=== PATIENT | male | born 1990 | race Caucasian/White ===

== ENCOUNTER 2017-08-26 11:02 | Emergency (ER) | payer MEDICAID, OTHER ==
[2017-08-26] MEDS ORDERED: NS 1,000 ML IV ONE ×2 (11:49→13:20)
[2017-08-26] MEDS ORDERED: LORazepam 2 MG/ML INJ IVP ONE (12:37)
--- NOTE | 2017-08-26 12:37 | EDPHY ---
General - History Smoking Status: Current every day smoker Time Seen by Provider: 08/26/17 12:04 Narrative: CHIEF COMPLAINT: Possible anxiety versus allergic reaction HISTORY OF PRESENT ILLNESS: Patient arrives by EMS with complaints possible allergic reaction. He says he was eating yogurt earlier today at work when he felt a sudden onset tingling, numbness, chest pain, and feeling anxious. This started abruptly and was constant. Symptoms worsen shortly after, thus he contacted 911. He felt as though he may have been have an allergic reaction as he had some symptoms in the past. He is also concerned that it may just be an anxiety reaction. He has had no difficulty breathing. No pruritus or rash. No difficulty swallowing. No other associated complaints or modifying factors. REVIEW OF SYSTEMS: Ten systems reviewed and are negative unless otherwise noted in the HPI PCP: Dr. Amber Andrea SPECIALISTS: None PAST MEDICAL HISTORY: None PAST SURGICAL HISTORY: No surgical history SOCIAL HISTORY: Admits to nicotine use. No drug or alcohol use FAMILY HISTORY: Noncontributory EXAMINATION General Appearance: Alert, no distress Head: normocephalic, atraumatic Eyes: Pupils equal and round, no conjunctival pallor or injection ENT, Mouth: Mucous membranes moist. Airway is widely patent. There is no erythema or edema of the oropharynx. Neck: Normal inspection, supple, non-tender Respiratory: Lungs are clear to auscultation. No wheezing rhonchi or crackles Cardiovascular: Rate. Regular rhythm. No murmur. Gastrointestinal: Abdomen is soft and nontender Back: non-tender, no bony abnormalities Neurological: A&O, nonfocal, normal gait. No pronator drift. Skin: Warm and dry, no rash. No petechiae or purpura Extremities: Nontender, no pedal edema Psychiatric: Mood and affect normal DIFFERENTIAL DIAGNOSES: Including but not limited to anxiety reaction, anaphylaxis, allergic reaction, substance abuse MDM: 12:30 p.m. Suspected anxiety reaction patient appears very anxious and tremulous. He has no rash at any point of his person. He has no involvement of the airway. No evidence of anaphylaxis. I will treat with Ativan and monitor. 1:30 p.m. Patient re-evaluated. He has received Ativan and is currently receiving IV fluid. Patient's heart rate has minimally responded. He does not feel much better so we will continue to monitor. 2:30 p.m. Patient is still receiving his IV fluid and then I will recheck. 2:50 p.m. Patient re-evaluated. He is feeling significantly better. Heart rate has improved to 108 to 110 beats per minute. He is asking to be discharged home as he says he feels significantly better. He has no complaints of swelling or difficulty breathing or swallowing. Has no rash. I suspect this is likely anxiety reaction. All write a prescription for hydroxyzine for him. He has strict ER precautions for any swelling of the lips, face or tongue, difficulty breathing or swallowing, rash. He is comfortable this plan and discharged in stable condition SUPERVISION: This patient was independently evaluated without direct involvement of or examination by the attending physician. (Grey Sykes) Medical Decision Making: I did not see this patient while he was in the emergency department. However his care was discussed with the PA while the patient was in the department. I agree with treatment plan and management (Sean Powell) - Objective Vital Signs: Initial Vital Signs Temperature (C) 98.6 F 08/26/17 11:04 Heart Rate 134 H 08/26/17 11:04 Respiratory Rate 18 08/26/17 11:04 Blood Pressure 148/100 H 08/26/17 11:04 O2 Sat (%) 97 08/26/17 11:04 O2 Delivery Mode Room Air Allergies/Adverse Reactions: No Known Allergies Allergy (Unverified 08/26/17 11:09) Home Medications: Medication Instructions Recorded Citalopram 07/19/15 Propranolol HCl 07/19/15 VYVANSE 07/19/15 Adderall 10 MG (RX) 07/25/15 Xanax 07/30/15 LAMOTRIGINE 01/30/16 OXcarbazepine 01/30/16 hydrOXYzine HCL [Hydroxyzine HCl] 50 mg PO Q6-8PRN PRN #10 tablet 08/26/17 Medications Given: Discontinued Medications Sodium Chloride (Ns) 1,000 mls @ 0 mls/hr IV ONCE ONE PRN Reason: Wide Open Stop: 08/26/17 11:50 Last Admin: 08/26/17 11:50 Dose: 1,000 mls Sodium Chloride (Ns) 1,000 mls @ 0 mls/hr IV ONCE ONE PRN Reason: Wide Open Stop: 08/26/17 13:21 Last Admin: 08/26/17 13:21 Dose: 1,000 mls Lorazepam (Ativan Injection) 2 mg IVP EDNOW ONE Stop: 08/26/17 12:38 Last Admin: 08/26/17 12:43 Dose: 2 mg Departure - Departure Disposition: Home, Routine, Self-Care Clinical Impression: Anxiety reaction Condition: Good Instructions: Anxiety (ED), Anxiolysis in Adults (ED) Additional Instructions: 1. Medication as prescribed as needed 2. Contact primary care physician today 3. ED precautions as discussed Referrals: Patient,NotPresent [Unknown] - As per Instructions Stand Alone Forms: Work Excuse Prescriptions: hydrOXYzine HCL [Hydroxyzine HCl] 50 mg PO Q6-8PRN PRN #10 tablet PRN Reason: Anxiety
[2017-08-26 15:06] VITALS: BP 155/95
== END 2017-08-26 15:05 | disposition home or self-care (01) ==
LOC: EDUNIT# → EDBD
DX: F41.1 Generalized anxiety disorder (principal)
CPT/HCPCS: 96374; J2060

== ENCOUNTER 2018-03-07 16:58 | Emergency (ER) | payer MEDICAID ==
[2018-03-07] MEDS ORDERED: NS 1,000 ML IV ONE ×2 (17:29→17:32)
--- NOTE | 2018-03-07 17:32 | EDPHY ---
H & P Time Seen by Provider: 03/07/18 17:19 HPI/ROS: CHIEF COMPLAINT: I think I have diabetes HISTORY OF PRESENT ILLNESS: 27-year-old man has history of anxiety, epilepsy, bipolar disorder. Patient presents with multiple complaints. He tells me they he "might have an episode of ketoacidosis" and that he is worried he has diabetes. He says he has been sleeping more, urinating more, drinking more. He sometimes has abdominal pain and currently has mild abdominal pain that is bilateral lower abdomen. He has had 2 episodes of nausea and vomiting which last more than 12 hr over the past 2 months. He has some nausea now. His anxiety blurry vision and elevated heart rate. He is also anxious, thinks he may be having a panic attack. REVIEW OF SYSTEMS: Eye: HPI ENT: no sore throat Cardiac: no chest pain or syncope, does have rapid heart rate Pulmonary: no cough or SOB Abdomen: HPI no diarrhea Musculoskeletal: no back pain Skin: no rash Neuro: no headache Constitutional: no fever : HPI no dysuria or hematuria A comprehensive 10 point review of systems is otherwise negative aside from elements mentioned in the history of present illness. PAST MEDICAL HISTORY: Includes anxiety, epilepsy on Lamictal only, bipolar disorder Social history: Vapor pen but denies other drugs or tobacco. Alcohol today but not for a while General Appearance: Alert and conversant, cooperative. Eyes: No scleral icterus. ENT, Mouth: Slightly dry mucous membranes. Respiratory: Normal respiratory effort, breath sounds equal, lungs are clear to auscultation. Cardiovascular: Regular rate and rhythm. Tachycardic without murmur. Gastrointestinal: Abdomen is soft and non tender. No McBurney's point tenderness, no rebound or guarding. Neurological: Alert, face symmetric, normal motor and sensory in extremities. Skin: Warm and dry, no rashes. Musculoskeletal: No peripheral edema. Psychiatric: Not agitated. Emergency Department course/MDM: EKG shows sinus rhythm. Plan for CBC chemistry and IV hydration with Zofran for nausea. 1902: Results discussed, patient does not have evidence of diabetes. For he is a little bit shaky, tachycardia, likely withdrawing from alcohol, associated anxiety. 2 mg IV Ativan, offered detox, patient declined. 1944: Heart rate 110, feels better, wants to go home and sleep so he can go to work tomorrow which I think is reasonable. Smoking Status: Current every day smoker Constitutional: Initial Vital Signs Temperature (C) 36.7 C 03/07/18 17:01 Heart Rate 131 H 03/07/18 17:01 Respiratory Rate 18 03/07/18 17:01 Blood Pressure 151/111 H 03/07/18 17:01 O2 Sat (%) 95 03/07/18 17:01 O2 Delivery Mode Room Air Allergies/Adverse Reactions: No Known Allergies Allergy (Unverified 08/26/17 11:09) Home Medications: Medication Instructions Recorded Citalopram 07/19/15 VYVANSE 07/19/15 Adderall 10 MG (RX) 07/25/15 LAMOTRIGINE 01/30/16 OXcarbazepine 01/30/16 Medical Decision Making - Diagnostics EKG Interpretation: 12-lead EKG interpreted by me; official reading is in computer system. My interpretation is sinus tachycardia rate 135 otherwise normal. - Data Points Laboratory Results: Laboratory Results 03/07/18 17:37 03/07/18 17:37 03/07/18 03/07/18 17:37 17:37 WBC 4.99 10^3/uL 10^3/uL (3.80-9.50) RBC 4.72 10^6/uL 10^6/uL (4.40-6.38) Hgb 14.7 g/dL g/dL (13.7-17.5) Hct 42.1 % % (40.0-51.0) MCV 89.2 fL fL (81.5-99.8) MCH 31.1 pg pg (27.9-34.1) MCHC 34.9 g/dL g/dL (32.4-36.7) RDW 13.0 % % (11.5-15.2) Plt Count 226 10^3/uL 10^3/uL (150-400) MPV 8.6 fL L fL (8.7-11.7) Neut % (Auto) 50.5 % % (39.3-74.2) Lymph % (Auto) 27.7 % % (15.0-45.0) [place] % (Auto) 20.8 % H % (4.5-13.0) Eos % (Auto) 0.0 % L % (0.6-7.6) Baso % (Auto) 0.8 % % (0.3-1.7) Nucleat RBC Rel Count 0.0 % % (0.0-0.2) Absolute Neuts (auto) 2.52 10^3/uL 10^3/uL (1.70-6.50) Absolute Lymphs (auto) 1.38 10^3/uL 10^3/uL (1.00-3.00) Absolute Monos (auto) 1.04 10^3/uL H 10^3/uL (0.30-0.80) Absolute Eos (auto) 0.00 10^3/uL L 10^3/uL (0.03-0.40) Absolute Basos (auto) 0.04 10^3/uL 10^3/uL (0.02-0.10) Absolute Nucleated RBC 0.00 10^3/uL 10^3/uL (0-0.01) Immature Gran % 0.2 % % (0.0-1.1) Immature Gran # 0.01 10^3/uL 10^3/uL (0.00-0.10) Sodium 135 mEq/L mEq/L (135-145) Potassium 3.2 mEq/L L mEq/L (3.3-5.0) Chloride 92 mEq/L L mEq/L (97-110) Carbon Dioxide 25 mEq/l mEq/l (22-31) Anion Gap 18 mEq/L H mEq/L (6-14) BUN 6 mg/dL L mg/dL (7-23) Creatinine 0.8 mg/dL mg/dL (0.7-1.3) Estimated GFR > 60 Glucose 112 mg/dL H mg/dL (70-100) Calcium 9.9 mg/dL mg/dL (8.5-10.4) Medications Given: Discontinued Medications Sodium Chloride (Ns) 1,000 mls @ 0 mls/hr IV EDNOW ONE; Wide Open PRN Reason: Protocol Stop: 03/07/18 17:30 Last Admin: 03/07/18 17:39 Dose: 1,000 mls Sodium Chloride (Ns) 1,000 mls @ 0 mls/hr IV EDNOW ONE; Wide Open PRN Reason: Protocol Stop: 03/07/18 17:33 Last Admin: 03/07/18 17:42 Dose: 1,000 mls Lorazepam (Ativan Injection) 2 mg IVP EDNOW ONE Stop: 03/07/18 18:58 Last Admin: 03/07/18 19:00 Dose: 2 mg Departure - Departure Disposition: Home, Routine, Self-Care Clinical Impression: Anxiety Alcohol withdrawal Qualifiers: Complication of substance-induced condition: uncomplicated Qualified Code(s): F10.230 - Alcohol dependence with withdrawal, uncomplicated Condition: Good Instructions: Anxiety (ED) Additional Instructions: You do not have evidence of diabetes on your blood test. Her glucose today is 112. Referrals: Amber Medina, PAC [Primary Care Provider] - As per Instructions
[2018-03-07 17:51] LABS: PLATELET COUNT 226 10^3/uL (150-400)
[2018-03-07] MEDS ORDERED: LORazepam 2 MG/ML INJ IVP ONE (18:57)
--- NOTE | 2018-03-07 19:46 | CPEKG ---
Test Reason : OPEN Blood Pressure : / mmHG Vent. Rate : 135 BPM Atrial Rate : 135 BPM P-R Int : 148 ms QRS Dur : 082 ms QT Int : 269 ms P-R-T Axes : 068 075 -42 degrees QTc Int : 404 ms Sinus tachycardia Confirmed by Kenrick Caro ([id number]) on 03/07/2018 7:45:34 PM Referred By: Confirmed By:Kenrick Caro
[2018-03-07 19:54] VITALS: BP 145/95
== END 2018-03-07 19:54 | disposition home or self-care (01) ==
DX: F10.230 Alcohol dependence with withdrawal, uncomplicated (principal); F41.9 Anxiety disorder, unspecified; E86.9 Volume depletion, unspecified
CPT/HCPCS: 96374; J2060